=== PATIENT | female | born 1970 | race American Indian/Alaskan Native ===

== ENCOUNTER 2017-06-30 11:12 | Outpatient (CLI) | payer OTHER ==
--- NOTE | 2017-06-30 15:38 | Mammography Report ---
BILATERAL DIGITAL SCREENING MAMMOGRAM with CAD: 06/30/17 11:12:00 CLINICAL: Routine screening. COMPARISON:06/26/15 FINDINGS: The breasts are almost entirely fatty. No mass, architectural distortion or suspicious calcifications. IMPRESSION: No mammographic evidence of malignancy. BI-RADS CATEGORY: 1 - - Negative RECOMMENDATION: Routine mammographic screening in one year. COMMENT: Patient follow-up letters are generated by our [employer] application.
== END 2017-06-30 11:13 | disposition home or self-care (01) ==
LOC: SPVWC 11:12
PROVIDERS: ATTEND Obstetrics & Gynecology
DX: Z12.31 Encounter for screening mammogram for malignant neoplasm of breast (principal)
CPT/HCPCS: 77067

== ENCOUNTER 2021-06-01 16:02 | Outpatient (CLI) | payer OTHER ==
--- NOTE | 2021-06-03 09:04 | Mammography Report ---
BILATERAL DIGITAL DIAGNOSTIC MAMMOGRAM WITH CAD 06/01/2021 LEFT LIMITED BREAST ULTRASOUND, 06/02/2021 INDICATION: The patient reports a palpable lump in the left axilla for one year. TECHNIQUE: Digital bilateral mammographic imaging was performed. Limited ultrasound was performed. This examination was interpreted with the benefit of Computer-Aided Detection (CAD) analysis. COMPARISON: Bilateral mammogram, 06/30/2017 and 06/26/2015 FINDINGS: Breast Density: There are scattered areas of fibroglandular density. MAMMOGRAPHIC FINDINGS: There is no evidence of dominant mass, suspicious calcifications or architectural distortion in either breast. There has been no significant interval change. ULTRASOUND FINDINGS: Targeted ultrasound evaluation was performed of the area of interest. Sonographic evaluation of the left axilla in the patient's area of palpable concern demonstrates a single normal appearing axillary lymph node. This lymph node measures 2.1 cm in length by 0.9 cm in short axis. This lymph node demonstrates a normal morphology with a preserved fatty hilum. No suspicious solid mass or shadowing is visualized. IMPRESSION: 1. The patient's area of palpable concern in the left axilla corresponds to a normal-appearing axillary lymph node. However, clinical correlation is recommended. 2. No mammographic abnormality of either breast. Follow up recommendation: Clinical exam BI-RADS Category 2: BENIGN. A "normal" or negative report should not discourage follow up or biopsy of a clinically significant finding. A written summary of these findings will be mailed to the patient. The patient will be entered into a mammography reporting system which will generate a reminder letter for the patient's next appointment at the appropriate interval. According to the [employer], yearly mammograms are recommended starting at age 40 and continuing as long as a woman is in good health. Breast MRI is recommended for women with an approximately 20-25% or greater lifetime risk of breast cancer, including women with a strong family history of breast or ovarian cancer and women who have been treated for Hodgkin's disease. Signer Name: Holli Jones MD Signed: 06/02/2021 11:14 AM Workstation Name: [id number] RECOMMENDATION^C BIRADS^2 MTDD
== END 2021-06-01 16:03 | disposition home or self-care (01) ==
LOC: SPVWC 16:02
PROVIDERS: ATTEND Obstetrics & Gynecology
DX: N63.32 Unspecified lump in axillary tail of the left breast (principal); N64.4 Mastodynia
CPT/HCPCS: 77066

== ENCOUNTER 2021-06-02 10:16 | Outpatient (CLI) | payer OTHER ==
--- NOTE | 2021-06-02 12:19 | Ultrasound Report ---
BILATERAL DIGITAL DIAGNOSTIC MAMMOGRAM WITH CAD 06/01/2021 LEFT LIMITED BREAST ULTRASOUND, 06/02/2021 INDICATION: The patient reports a palpable lump in the left axilla for one year. TECHNIQUE: Digital bilateral mammographic imaging was performed. Limited ultrasound was performed. T his examination was interpreted with the benefit of Computer-Aided Detection (CAD) analysis. COMPARISON: Bilateral mammogram, 06/30/2017 and 06/26/2015 FINDINGS: Breast Density: There are scattered areas of fibroglandular density. MAMMOGRAPHIC FINDINGS: There is no evidence of dominant mass, suspicious calcifications or architectu ral distortion in either breast. There has been no significant interval change. ULTRASOUND FINDINGS: Targeted ultrasound evaluation was performed of the area of interest. Sonograp hic evaluation of the left axilla in the patient's area of palpable concern demonstrates a single nor mal appearing axillary lymph node. This lymph node measures 2.1 cm in length by 0.9 cm in short axis. This lymph node demonstrates a normal morphology with a preserved fatty hilum. No suspicious solid m ass or shadowing is visualized. IMPRESSION: 1. The patient's area of palpable concern in the left axilla corresponds to a normal-appearing axill jefe lymph node. However, clinical correlation is recommended. 2. No mammographic abnormality of either breast. Follow up recommendation: Clinical exam BI-RADS Category 2: BENIGN. A "normal" or negative report should not discourage follow up or biopsy of a clinically significant f inding. A written summary of these findings will be mailed to the patient. The patient will be entered into a mammography reporting system which will generate a reminder letter for the patient's next appointmen t at the appropriate interval. According to the [employer], yearly mammograms are recommended starting at age 40 and continuing as long as a woman is in good health. Breast MRI is recommended for women with an pierre roximately 20-25% or greater lifetime risk of breast cancer, including women with a strong family his tory of breast or ovarian cancer and women who have been treated for Hodgkin's disease. Signer Name: Holli Jones MD Signed: 06/02/2021 12:14 PM Workstation Name: [email or web address]
== END 2021-06-02 10:17 | disposition home or self-care (01) ==
LOC: US 10:16
PROVIDERS: ATTEND Obstetrics & Gynecology
DX: N63.32 Unspecified lump in axillary tail of the left breast (principal)